=== PATIENT | female | born 2000 | race Caucasian/White ===

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

== ENCOUNTER 2019-03-30 10:31 | Emergency (ER) | payer OTHER ==
[~2019-03-30] VITALS: Ht 165.1 cm; Wt 59.1 kg
[~2019-03-30 10:31] MED LIST changes: +ZITHROMAX 250M250 MG PO
[2019-03-30 10:36] VITALS: BP 134/73
[2019-03-30] MEDS ORDERED: AMOXICILLIN 50500 MG PO (10:49)
[2019-03-30 10:54] VITALS: PULSE 98; TEMP 98.4
== END 2019-03-30 10:55 | disposition home or self-care (01) ==
LOC: COL.ER 10:31
DX: K02.9 Dental caries, unspecified (principal); F17.210 Nicotine dependence, cigarettes, uncomplicated

== ENCOUNTER 2019-04-27 19:37 | Emergency (ER) | payer OTHER ==
[~2019-04-27] VITALS: Ht 165.1 cm; Wt 59.1 kg
[2019-04-27 19:48] VITALS: TEMP 97
[2019-04-27 20:26] VITALS: BP 159/89; PULSE 95
== END 2019-04-27 20:26 | disposition home or self-care (01) ==
LOC: COL.ER 19:37
DX: F07.81 Postconcussional syndrome (principal); G44.309 Post-traumatic headache, unspecified, not intractable; F17.210 Nicotine dependence, cigarettes, uncomplicated; R40.2412 Glasgow coma scale score 13-15, at arrival to emergency department

== ENCOUNTER 2019-05-27 19:04 | Emergency (ER) | payer SELFPAY ==
[2019-05-28] MEDS ORDERED: AMOXICILLIN 50500 MG PO (14:32)
[2019-05-28] MEDS ORDERED: NORCO 325 MG-51 TAB PO (14:32)
== END 2019-05-27 19:32 | disposition left against medical advice (07) ==
LOC: COL.ER 19:04
DX: Z72.9 Problem related to lifestyle, unspecified (principal)

== ENCOUNTER 2019-05-28 13:48 | Emergency (ER) | payer SELFPAY ==
[~2019-05-28] VITALS: Ht 165.1 cm; Wt 61.4 kg
[2019-05-28 13:58] VITALS: BP 125/60; TEMP 98.9
[2019-05-28] MEDS ORDERED: AMOXICILLIN 50500 MG PO (14:32)
[2019-05-28] MEDS ORDERED: NORCO 325 MG-51 TAB PO (14:32)
[2019-05-28 14:51] VITALS: PULSE 82
== END 2019-05-28 15:04 | disposition home or self-care (01) ==
LOC: COL.ER 13:48
DX: K02.9 Dental caries, unspecified (principal); F17.210 Nicotine dependence, cigarettes, uncomplicated

== ENCOUNTER → 2019-08-29 | Outpatient (CLI) | payer BC ==
[~2019-08-29] MED LIST changes: +NORCO 325 MG-51 TAB PO
== END ==
LOC: BHSO 10:47
DX: F31.81 Bipolar II disorder (principal)

== ENCOUNTER → 2019-10-03 | Outpatient (CLI) | payer BC | LOC: BHSO 10:31 | DX: F31.81 Bipolar II disorder (principal) | CPT/HCPCS: G0463 ==

== ENCOUNTER → 2019-10-30 | Outpatient (CLI) | payer BC | LOC: BHSO 10:17 | DX: F31.81 Bipolar II disorder (principal) | CPT/HCPCS: G0463 ==

== ENCOUNTER → 2019-11-09 | Outpatient (CLI) | payer BC | LOC: BHSO 14:51 | DX: F31.81 Bipolar II disorder (principal) | CPT/HCPCS: G0463 ==

== ENCOUNTER → 2020-03-29 | Outpatient (CLI) | payer OTHER | LOC: BHSO 15:09 | DX: F31.81 Bipolar II disorder (principal) | CPT/HCPCS: G0463 ==

== ENCOUNTER → 2020-06-12 | Outpatient (CLI) | payer OTHER | LOC: BHSO 08:24 | DX: F31.81 Bipolar II disorder (principal) | CPT/HCPCS: G0463 ==

== ENCOUNTER → 2020-10-31 | Emergency (ER) | payer SELFPAY ==
[~2020-10-31] VITALS: Ht 162.6 cm; Wt 72.7 kg
[~2020-10-31] MED LIST changes: +MOTRIN 600600 MG/TAB PO; +TYLENOL 325MG325 MG PO
[2020-10-31 21:11] VITALS: BP 111/71; PULSE 93; TEMP 97.5
== END ==
LOC: COL.ER 21:02
DX: M25.511 Pain in right shoulder (principal); V47.6XXA Car passenger injured in collision with fixed or stationary object in traffic accident, initial encounter
CPT/HCPCS: J1885